=== PATIENT | male | born 1955 | race Caucasian/White ===

== ENCOUNTER 2024-12-13 21:56 | Observation (INO) ==
--- NOTE | 2024-12-13 22:06 | DR.AMS ---
HPI Time Seen Time Seen by Provider: 12/13/24 22:04 HPI Comment HPI Comment: PMH of HLD, COPD and HTN brought in by EMS for failure to thrive. Per EMS family reported he has a history of dementia. He had not been feeding himself and has significant weight loss. Patient was alert and oriented x 2 w ith some confusion and pleasantly demented. Per family's report to EMS this is his baseline mentally. EMS reported that he was clear he was not taking care of himself at home and he was leaving on a trailer that was filthy. Per EMS, patient's family was unable to care for him and requested patient be brought to the hospital and possibly find placement in prison. PMH PMH Past Medical History: CHF, COPD, Dyslipidemia and Hypertension Past Surgical History: No Surgical History: Unknown Family History Family Medical History: Cancer Social History Do you use any recreational Drugs:: No ROS Review of Systems Constitutional: See HPI and Weakness (Generalized); negative Fever Eyes: No Symptoms Reported ENTM: No Symptoms Reported Respiratoy: No Symptoms Reported Cardiovascular: No Symptoms Reported Gastrointestinal/Abdominal: No Symptoms Reported Genitourinary: No Symptoms Reported Neurological: No Symptoms Reported Musculoskeletal: See HPI (Generalized deconditioning. No pain or recent injuries.) Integumentary: No Symptoms Reported Hematologic/Lymphatic: No Symptoms Reported Endocrine: No Symptoms Reported Psychiatric: No Symptoms Reported All Other Systems: Reviewed and Negative PE Vitals Vital Signs: Temp Pulse Pulse Resp BP BP Pulse Ox 12/13/24 23:00 129/95 12/13/24 22:30 83 147/95 96 12/13/24 22:10 98.2 F 87 18 165/103 100 O2 Del Method 12/13/24 23:00 12/13/24 22:30 Nasal Cannula 12/13/24 22:10 General Limitations: Other (Pleasantly demented, alert and oriented x 2. Very debilitated and cachectic.) Head Head Exam: Atraumatic and Normocephalic Eyes Eye exam: Normal Appearance, PERRL and EOMI ENT ENT Exam: Normal Exam Neck Neck Exam: Normal Inspection Chest Chest Inspection: Normal Inspection Respiratory Respiratory Exam: Normal Lung Sounds Bilat Cardiovascular Cardiovascular Exam: Regular Rate and Normal Rhythm Abdominal Exam Abdominal Exam: Normal Inspection, Normal Bowel Sounds and Soft; negative Distention, Tenderness, Guarding, Rebound or Rigidity Extremities Extremities Exam: Normal Inspection Back Back Exam: Normal Inspection Psychological Psychiatric Exam: Normal Affect and Normal Mood Other Exam Other Exam: Patient had grown appropriately with very poor hygiene. Patient is very cachectic and deconditioned. COURSE Consultation Called: 00:37 Consultation Comments: Discussed case with Dr. Andre and he is agreeable to admission. ROR Labs Reviewed 12/13/24 22:14 12/13/24 22:14 Laboratory: WBC 9.6 X10^3/uL (3.6-10.0) 12/13/24 22:14 RBC 4.67 X10^6/uL (4.7-6.0) L 12/13/24 22:14 Hgb 14.4 g/dL (13.5-18.0) 12/13/24 22:14 Hct 43.1 % (42.0-54.0) 12/13/24 22:14 MCV 92.2 fL (80.0-100.0) 12/13/24 22:14 MCH 30.8 pg (27.0-34.0) 12/13/24 22:14 MCHC 33.4 g/dL (33.0-35.0) 12/13/24 22:14 RDW 14.9 % (11.6-16.5) 12/13/24 22:14 Plt Count 280 X10^3/uL (150.0-450.0) 12/13/24 22:14 MPV 7.5 fL (7.4-11.0) 12/13/24 22:14 Neut % (Auto) 73.0 % (42.0-75.0) 12/13/24 22:14 Lymph % (Auto) 16.6 % (21.0-51.0) L 12/13/24 22:14 [place] % (Auto) 5.5 % (0.0-13.0) 12/13/24 22:14 Eos % (Auto) 3.9 % (0.9-2.9) H 12/13/24 22:14 Baso % (Auto) 1.0 % (0.2-1.0) 12/13/24 22:14 Neut # (Auto) 7.0 x10^3/uL (2.2-4.8) H 12/13/24 22:14 Lymph # (Auto) 1.6 X10^3/uL (1.3-2.9) 12/13/24 22:14 [place] # (Auto) 0.5 x10^3/uL (0.3-0.8) 12/13/24 22:14 Eos # (Auto) 0.4 x10^3/uL (0.0-0.2) H 12/13/24 22:14 Baso # (Auto) 0.1 X10^3/uL (0.0-0.1) 12/13/24 22:14 Absolute Nucleated RBC 0.1 /100WBC 12/13/24 22:14 Sodium 144 mmol/L (136-145) 12/13/24 22:14 Corrected Sodium 145 mmol/L (136-145) 12/13/24 22:14 Potassium 3.6 mmol/L (3.5-5.1) 12/13/24 22:14 Chloride 102 mmol/L (98-107) 12/13/24 22:14 Carbon Dioxide 33.1 mmol/L (21-32) H 12/13/24 22:14 BUN 23 mg/dL (7-18) H 12/13/24 22:14 Creatinine 1.41 mg/dL (0.70-1.30) H 12/13/24 22:14 Est GFR (MDRD) Af Amer > 60 (>60) 12/13/24 22:14 Est GFR (MDRD) Non-Af 53 (>60) L 12/13/24 22:14 Glucose 134 mg/dL (65-99) H 12/13/24 22:14 Calcium 9.0 mg/dL (8.5-10.1) 12/13/24 22:14 Corrected Calcium 9.8 mg/dL (8.5-10.1) 12/13/24 22:14 Total Bilirubin 1.00 mg/dL (0.2-1.0) 12/13/24 22:14 AST 24 Units/L (15-37) 12/13/24 22:14 ALT 13 Units/L (12-78) 12/13/24 22:14 Alkaline Phosphatase 88 Units/L (46-116) 12/13/24 22:14 Total Protein 6.8 g/dL (6.4-8.2) 12/13/24 22:14 Albumin 3.0 g/dL (3.4-5.0) L 12/13/24 22:14 Globulin 3.8 g/dL (2.5-4.5) 12/13/24 22:14 Albumin/Globulin Ratio 0.8 Ratio (1.1-2.1) L 12/13/24 22:14 Folate > 20.0 ng/mL (>8.6) 12/13/24 22:14 Opioid Opioid Risk Tool Age ([place] box if 16-45): No History of Preadolescent Sexual Abuse: No Total: 0 Total Score Risk Category: Low Risk Copyright: Nino SHETH predicting aberrant behaviors Discharge Plan Diagnosis Discharge Problem: Adult failure to thrive, Dementia, Cachexia Discharge Plan Patient Disposition: ADMITTED INPATIENT Condition: Stable Prescriptions: No Action albuterol sulfate 90 mcg/actuation HFA aerosol inhaler 2 puff inhalation Q4-6H PRNQty: 8.5 0RF losartan-hydrochlorothiazide 50-12.5 mg tablet 1 tab PO QDAY Qty: 15 0RF furosemide 40 mg tablet 40 mg PO BID folic acid 1 mg tablet 1 mg PO QDAY Health Concerns: Post Hospitalization: new medications and changes needed to prevent readmission or further decline. Pt educated and given instructions on all concerns. Plan of Treatment: Continue with present treatment and follow up plan. Pt is to keep follow up appointment as instructed and take medications as ordered. Orders to Discharge Patient Discharge Orders: Transfer (Routine); Ordered 12/14/24 Ordered By: Kavin Wan Instructions Stand Alone Forms: Find Help Web Site, Post Hospital Follow Up Care
--- NOTE | 2024-12-13 22:21 | EKG ---
Test Reason : AMS Blood Pressure : */* mmHG Vent. Rate : 86 BPM Atrial Rate : 86 BPM P-R Int : 142 ms QRS Dur : 86 ms QT Int : 360 ms P-R-T Axes : 79 87 243 degrees QTc Int : 430 ms Normal sinus rhythm Septal infarct (cited on or before 28-MAR-2024) Abnormal ECG When compared with ECG of 28-MAR-2024 17:11, Questionable change in initial forces of Anterior leads ST now depressed in Inferior leads T wave inversion now evident in Inferior leads QT has shortened Confirmed by Michel Thompson MD ([id number]) on 12/14/2024 7:23:14 AM Referred By: Confirmed By: Michel Thompson MD
[2024-12-13 22:33] LABS: BASOPHILS # (AUTO) 0.1 X10^3/uL (0.0-0.1); EOSINOPHILS # (AUTO) 0.4 x10^3/uL (0.0-0.2); EOSINOPHILS % (AUTO) 3.9 % (0.9-2.9); HEMATOCRIT 43.1 % (42.0-54.0); HEMOGLOBIN 14.4 g/dL (13.5-18.0); LYMPHOCYTES # (AUTO) 1.6 X10^3/uL (1.3-2.9); LYMPHOCYTES % (AUTO) 16.6 % (21.0-51.0); MEAN CORPUSCULAR HEMOGLOBIN 30.8 pg (27.0-34.0); MEAN CORPUSCULAR HGB CONC 33.4 g/dL (33.0-35.0); MEAN CORPUSCULAR VOLUME 92.2 fL (80.0-100.0); MEAN PLATELET VOLUME 7.5 fL (7.4-11.0); MONOCYTES # (AUTO) 0.5 x10^3/uL (0.3-0.8); MONOCYTES % (AUTO) 5.5 % (0.0-13.0); PLATELET COUNT 280 X10^3/uL (150.0-450.0); RED BLOOD COUNT 4.67 X10^6/uL (4.7-6.0); RED CELL DISTRIBUTION WIDTH 14.9 % (11.6-16.5); WHITE BLOOD COUNT 9.6 X10^3/uL (3.6-10.0)
[2024-12-13 22:45] LABS: ALANINE AMINOTRANSFERASE 13 Units/L (12-78); ALKALINE PHOSPHATASE 88 Units/L (46-116); ASPARTATE AMINO TRANSFERASE 24 Units/L (15-37); BLOOD UREA NITROGEN 23 mg/dL (7-18); CARBON DIOXIDE 33.1 mmol/L (21-32); CHLORIDE 102 mmol/L (98-107); COR CA(FOR HYPOALB) 9.8 mg/dL (8.5-10.1); COR NA(FOR HYPERGLY) 145 mmol/L (136-145); CREATININE 1.41 mg/dL (0.70-1.30); GLUCOSE 134 mg/dL (65-99); POTASSIUM 3.6 mmol/L (3.5-5.1); SODIUM 144 mmol/L (136-145); TOTAL PROTEIN 6.8 g/dL (6.4-8.2); eGFR NON BLACK RACES 53 (>60)
[2024-12-14] MEDS ORDERED: CONSULT PHARMACY - POTASSIUM & MAGNESIUM XX SCH (01:01)
[2024-12-14] MEDS: NS 1,000 ML IV 1,000 ML IV SCH (01:48)
[2024-12-14] MEDS: K-DUR TAB 20 MEQ PO SCH ×2 (01:49→08:05)
[2024-12-14 04:50] LABS: BASOPHILS # (AUTO) 0.1 X10^3/uL (0.0-0.1); BASOPHILS % (AUTO) 1.4 % (0.2-1.0); EOSINOPHILS # (AUTO) 0.3 x10^3/uL (0.0-0.2); EOSINOPHILS % (AUTO) 4.3 % (0.9-2.9); HEMATOCRIT 43.8 % (42.0-54.0); HEMOGLOBIN 14.5 g/dL (13.5-18.0); LYMPHOCYTES # (AUTO) 1.4 X10^3/uL (1.3-2.9); LYMPHOCYTES % (AUTO) 18.3 % (21.0-51.0); MEAN CORPUSCULAR HEMOGLOBIN 30.7 pg (27.0-34.0); MEAN CORPUSCULAR HGB CONC 33.2 g/dL (33.0-35.0); MEAN CORPUSCULAR VOLUME 92.4 fL (80.0-100.0); MEAN PLATELET VOLUME 7.7 fL (7.4-11.0); MONOCYTES # (AUTO) 0.5 x10^3/uL (0.3-0.8); MONOCYTES % (AUTO) 6.4 % (0.0-13.0); NEUTROPHILS # (AUTO) 5.3 x10^3/uL (2.2-4.8); NEUTROPHILS % (AUTO) 69.6 % (42.0-75.0); PLATELET COUNT 272 X10^3/uL (150.0-450.0); RED BLOOD COUNT 4.74 X10^6/uL (4.7-6.0); RED CELL DISTRIBUTION WIDTH 14.9 % (11.6-16.5); WHITE BLOOD COUNT 7.7 X10^3/uL (3.6-10.0)
[2024-12-14 05:10] LABS: ALANINE AMINOTRANSFERASE 11 Units/L (12-78); ALKALINE PHOSPHATASE 89 Units/L (46-116); ASPARTATE AMINO TRANSFERASE 21 Units/L (15-37); BLOOD UREA NITROGEN 22 mg/dL (7-18); CALCIUM 9.1 mg/dL (8.5-10.1); CARBON DIOXIDE 36.8 mmol/L (21-32); CHLORIDE 104 mmol/L (98-107); COR CA(FOR HYPOALB) 9.9 mg/dL (8.5-10.1); COR NA(FOR HYPERGLY) 147 mmol/L (136-145); CREATININE 1.21 mg/dL (0.70-1.30); GLUCOSE 160 mg/dL (65-99); MAGNESIUM 2.3 mg/dL (2.0-2.9); POTASSIUM 3.7 mmol/L (3.5-5.1); SODIUM 146 mmol/L (136-145); eGFR NON BLACK RACES > 60 (>60)
[2024-12-14] MEDS: CONSULT PHARMACY - POTASSIUM & MAGNESIUM XX SCH (06:53)
[2024-12-14] MEDS ORDERED: TESSALON PERLES PO PRN (09:11)
--- NOTE | 2024-12-14 09:48 | DR.H&P ---
H&P History & Physical for Day of: H&P Date: 12/14/24 Chief Complaint Chief Complaint: generalized weakness, FTT History of Present Illness History of Present Illness: Mr Larson is a 69y/o male with a PMH of COPD, HTN, Dementia presented with failure To thrive and generalized weakness. Patient was found in very bad living condition and unable to take care of himself. ER workup showed slight dehydration. He was started on IV fluids and admitted for further evaluation. Patient states he has not followed up with PCP in a while. He reports taking his medications. He does report normal appetite and does not think he is lost a lot of weight. He states he is able to ambulate on his own. He has been coughing recently. Labs/imaging reviewed: - WBC 7.7 hemoglobin 14.5 potassium 3.7 sodium 147 creatinine 1.21 Plan: Will order chest x-ray. Continue nebs, add Pulmicort. Physical therapy evaluation. Continue hydration, switch to D5. Replace electrolytes as per protocol. Hold blood pressure medication at this time. Patient does have a sacral wound, wound care and position change as per protocol. Monitor a.m. labs and imaging. Past Medical History Past Medical History: CHF, COPD, Dyslipidemia and Hypertension Past Surgical History Surgical History: Unknown Family History Family Medical History: Cancer Social History Does patient currently use any type of tobacco product: No Type of Tobacco Use: None Does any household member use tobacco: No Alcohol Use: None Drug Use: None Medications Home Medications: Home Medications Medication Instructions Recorded Confirmed Type folic acid 1 mg tablet 1 mg PO QDAY 12/13/24 12/13/24 History furosemide 40 mg tablet 40 mg PO BID 12/13/24 12/13/24 History Allergies Allergies Allergy/AdvReac Type Severity Reaction Status Date / Time No Known Allergies Allergy Verified 03/28/24 16:40 Labs 12/14/24 04:15 12/14/24 04:15 Labs: Laboratory WBC 7.7 X10^3/uL (3.6-10.0) 12/14/24 04:15 RBC 4.74 X10^6/uL (4.7-6.0) 12/14/24 04:15 Hgb 14.5 g/dL (13.5-18.0) 12/14/24 04:15 Hct 43.8 % (42.0-54.0) 12/14/24 04:15 MCV 92.4 fL (80.0-100.0) 12/14/24 04:15 MCH 30.7 pg (27.0-34.0) 12/14/24 04:15 MCHC 33.2 g/dL (33.0-35.0) 12/14/24 04:15 RDW 14.9 % (11.6-16.5) 12/14/24 04:15 Plt Count 272 X10^3/uL (150.0-450.0) 12/14/24 04:15 MPV 7.7 fL (7.4-11.0) 12/14/24 04:15 Neut % (Auto) 69.6 % (42.0-75.0) 12/14/24 04:15 Lymph % (Auto) 18.3 % (21.0-51.0) L 12/14/24 04:15 [place] % (Auto) 6.4 % (0.0-13.0) 12/14/24 04:15 Eos % (Auto) 4.3 % (0.9-2.9) H 12/14/24 04:15 Baso % (Auto) 1.4 % (0.2-1.0) H 12/14/24 04:15 Neut # (Auto) 5.3 x10^3/uL (2.2-4.8) H 12/14/24 04:15 Lymph # (Auto) 1.4 X10^3/uL (1.3-2.9) 12/14/24 04:15 [place] # (Auto) 0.5 x10^3/uL (0.3-0.8) 12/14/24 04:15 Eos # (Auto) 0.3 x10^3/uL (0.0-0.2) H 12/14/24 04:15 Baso # (Auto) 0.1 X10^3/uL (0.0-0.1) 12/14/24 04:15 Absolute Nucleated RBC 0.1 /100WBC 12/14/24 04:15 Sodium 146 mmol/L (136-145) H 12/14/24 04:15 Corrected Sodium 147 mmol/L (136-145) H 12/14/24 04:15 Potassium 3.7 mmol/L (3.5-5.1) 12/14/24 04:15 Chloride 104 mmol/L (98-107) 12/14/24 04:15 Carbon Dioxide 36.8 mmol/L (21-32) H 12/14/24 04:15 BUN 22 mg/dL (7-18) H 12/14/24 04:15 Creatinine 1.21 mg/dL (0.70-1.30) 12/14/24 04:15 Est GFR (MDRD) Af Amer > 60 (>60) 12/14/24 04:15 Est GFR (MDRD) Non-Af > 60 (>60) 12/14/24 04:15 Glucose 160 mg/dL (65-99) H 12/14/24 04:15 Calcium 9.1 mg/dL (8.5-10.1) 12/14/24 04:15 Corrected Calcium 9.9 mg/dL (8.5-10.1) 12/14/24 04:15 Magnesium 2.3 mg/dL (2.0-2.9) 12/14/24 04:15 Total Bilirubin 0.80 mg/dL (0.2-1.0) 12/14/24 04:15 AST 21 Units/L (15-37) 12/14/24 04:15 ALT 11 Units/L (12-78) L 12/14/24 04:15 Alkaline Phosphatase 89 Units/L (46-116) 12/14/24 04:15 Total Protein 7.0 g/dL (6.4-8.2) 12/14/24 04:15 Albumin 3.0 g/dL (3.4-5.0) L 12/14/24 04:15 Globulin 4.0 g/dL (2.5-4.5) 12/14/24 04:15 Albumin/Globulin Ratio 0.8 Ratio (1.1-2.1) L 12/14/24 04:15 Folate > 20.0 ng/mL (>8.6) 12/13/24 22:14 Review of Systems Constitutional: Weakness Eyes: No Symptoms Reported ENT: No Symptoms Reported Respiratory: Cough and Sputum Cardiovascular: No Symptoms Reported Gastrointestinal: No Symptoms Reported Genitourinary: No Symptoms Reported Musculoskeletal: Other (generalized pain) Skin: Ecchymosis Neurological: No Symptoms Reported Physical Exam Vital Signs: Vital Signs Temperature 97.2 F Temperature 97.8 F Pulse Rate [Left] 80 Pulse Rate [Left] 83 Pulse Rate 87 Respiratory Rate 18 Respiratory Rate 16 Blood Pressure [Right Arm] 142/93 Blood Pressure [Right Arm] 128/78 O2 Sat by Pulse Oximetry 94 O2 Sat by Pulse Oximetry 94 O2 Sat by Pulse Oximetry 95 Oriented: Normal Eyes: Normal Respiratory: Diminished Throughout Cardiovascular: Normal Auscultation: Bowel Sounds: Normal Palpation: Normal Tenderness: Normal Skin: Decreased Turgur and Wound (sacrum ) Musculoskeletal: Motor Deficit Psychiatric: Normal Mood Description: Calm Affect: Normal Speech Pattern: Clear and Appropriate Assessment/Plan (1) Adult failure to thrive: Status: Acute (2) Generalized weakness: Status: Acute (3) Cachexia: Status: Acute (4) Dementia: Qualifiers: Dementia type: unspecified type Dementia severity: unspecified severity Dementia behavioral or psychological symptom: unspecified whether behavioral, psychotic, or mood disturbance or anxiety Qualified Code(s): F03.90 - Unspecified dementia, unspecified severity, without behavioral disturbance, psychotic disturbance, mood disturbance, and anxiety Status: Chronic (5) COPD (chronic obstructive pulmonary disease): Qualifiers: COPD type: COPD with acute exacerbation Qualified Code(s): J44.1 - Chronic obstructive pulmonary disease with (acute) exacerbation Status: Chronic (6) HTN (hypertension): Qualifiers: Hypertension type: primary hypertension Qualified Code(s): I10 - Essential (primary) hypertension Status: Chronic Review H&P Reviewed: Yes Patient was examined?: Yes
[2024-12-14] MEDS: D5W 1,000 ML IV 1,000 ML IV SCH (10:08)
[2024-12-14] MEDS: PULMICORT NEB TX 0.5 MG NEB SCH (10:33)
[2024-12-14] MEDS: PROVENTIL NEB TX 0.083% 2.5MG/ 3ML NEB PRN (10:33)
--- NOTE | 2024-12-14 12:04 | RAD ---
EXAM: CHEST, 1 VIEW HISTORY: COUGH; HX- COPD, HTN COMPARISON: No relevant prior studies were available for comparison at the time of interpretation. TECHNIQUE: CHEST, 1 VIEW FINDINGS: Chest: Lines and tubes: None Mediastinum: Cardiac and mediastinal shadow is within normal limits for size and contour. Pulmonary vessels: No pulmonary vascular congestion. Lung buckley: Interstitial markings and hyperinflation of the lungs with diaphragmatic flattening. Pleura: No effusion. No pneumothorax. Bones and soft tissues: No acute osseous or soft tissue abnormality. IMPRESSION: 1. No acute cardiopulmonary abnormality 2. Stigmata of COPD THIS IS AN ELECTRONICALLY VERIFIED FINAL REPORT 12/14/2024 12:00 PM - Electronically signed by Abdulaziz Khan MD
[2024-12-14 16:10] LABS: BILIRUBIN,URINE NEGATIVE (NEGATIVE); BLOOD/HEMOGLOBIN,URINE NEGATIVE (NEGATIVE); GLUCOSE, URINE NEGATIVE (NEGATIVE); KETONES,URINE NEGATIVE (NEGATIVE); LEUKOCYTE ESTERASE ,URINE NEGATIVE (NEGATIVE); NITRITES,URINE NEGATIVE (NEGATIVE); PROTEIN,URINE 2+ (NEGATIVE); UROBILINOGEN,URINE NORMAL (NORMAL)
[2024-12-14 16:11] LABS: APPEARANCE,URINE CLEAR (CLEAR); COLOR,URINE YELLOW (YELLOW)
[2024-12-14 16:16] LABS: BACTERIA,URINE NEGATIVE /HPF (NEGATIVE); SQUAMOUS EPITHELIAL CELL,UR NEGATIVE /HPF (NEGATIVE)
[2024-12-14 16:17] LABS: CALCIUM OXALATE CRYSTALS,UR FEW /HPF (NEGATIVE); HYALINE CASTS, URINE FEW /LPF (NEGATIVE)
[2024-12-14] MEDS: ZITHROMAX INJ 500 MG VIAL 500 MG in NS 250 ML IV 250 ML IV SCH (17:33)
[2024-12-15 05:48] LABS: BASOPHILS % (AUTO) 0.5 % (0.2-1.0); EOSINOPHILS # (AUTO) 0.4 x10^3/uL (0.0-0.2); EOSINOPHILS % (AUTO) 8.6 % (0.9-2.9); HEMOGLOBIN 13.5 g/dL (13.5-18.0); LYMPHOCYTES # (AUTO) 1.4 X10^3/uL (1.3-2.9); MEAN CORPUSCULAR HEMOGLOBIN 31.3 pg (27.0-34.0); MEAN CORPUSCULAR HGB CONC 33.8 g/dL (33.0-35.0); MEAN CORPUSCULAR VOLUME 92.6 fL (80.0-100.0); MEAN PLATELET VOLUME 7.7 fL (7.4-11.0); MONOCYTES # (AUTO) 0.4 x10^3/uL (0.3-0.8); MONOCYTES % (AUTO) 6.9 % (0.0-13.0); NEUTROPHILS # (AUTO) 2.9 x10^3/uL (2.2-4.8); PLATELET COUNT 236 X10^3/uL (150.0-450.0); RED BLOOD COUNT 4.32 X10^6/uL (4.7-6.0); WHITE BLOOD COUNT 5.1 X10^3/uL (3.6-10.0)
[2024-12-15 06:02] LABS: ALANINE AMINOTRANSFERASE 11 Units/L (12-78); ALBUMIN 2.6 g/dL (3.4-5.0); ALKALINE PHOSPHATASE 72 Units/L (46-116); ASPARTATE AMINO TRANSFERASE 22 Units/L (15-37); BLOOD UREA NITROGEN 18 mg/dL (7-18); CALCIUM 8.6 mg/dL (8.5-10.1); CARBON DIOXIDE 37.2 mmol/L (21-32); CHLORIDE 104 mmol/L (98-107); COR CA(FOR HYPOALB) 9.7 mg/dL (8.5-10.1); CREATININE 0.83 mg/dL (0.70-1.30); GLUCOSE 84 mg/dL (65-99); MAGNESIUM 2.1 mg/dL (2.0-2.9); POTASSIUM 4.5 mmol/L (3.5-5.1); SODIUM 142 mmol/L (136-145); TOTAL PROTEIN 6.2 g/dL (6.4-8.2); eGFR NON BLACK RACES > 60 (>60)
[2024-12-15 06:42] VITALS: BMI 12.9
--- NOTE | 2024-12-15 15:45 | PCM.PROG ---
Progress Note Progress Note for Day of Date of Exam: 12/15/24 Subjective Subjective: Patient seen at bedside, no acute events overnight. He states he is feeling better. His cough is improved. Chest x-ray did not show any acute changes except chronic COPD. His blood pressure has been good. His BP medications have been held. Discussed living condition at home. Patient states he would prefer to go home. He states he worked with physical therapy yesterday. He reports that he is able to ambulate and go to the bathroom. Labs/imaging reviewed: - WBC 5.1 hemoglobin 13.5 potassium 4.5 sodium 142 creatinine 0.83 - Chest x-ray reviewed Plan: Continue gentle hydration. Continue nebs and azithromycin. CM to work on discharge planning. Continue physical therapy as tolerated. Replace electrolytes as needed. Monitor a.m. labs and imaging. Past Medical Family Social History Allergies: Allergies No Known Allergies Allergy (Verified 03/28/24 16:40) Vital Signs and I&O's Vital Signs: Vital Signs Temperature 97.3 F Temperature 97.2 F Pulse Rate [Left] 73 Pulse Rate [Left] 65 Pulse Rate 83 Respiratory Rate 19 Respiratory Rate 18 Blood Pressure [Right Arm] 103/73 Blood Pressure [Right Arm] 106/64 O2 Sat by Pulse Oximetry 97 O2 Sat by Pulse Oximetry 95 O2 Sat by Pulse Oximetry 98 Intake and Output: Intake & Output 12/12/24 12/13/24 12/14/24 12/15/24 23:59 23:59 23:59 23:59 Intake Total 1504 / 1504 1288 / 1288 Output Total 250 / 250 Balance 1254 / 1254 1288 / 1288 Physical Exam Oriented: Normal Eyes: Normal Throat: Dry Respiratory: Generalized and Diminished Cardiovascular: Normal Auscultation: Bowel Sounds: Normal Palpation: Normal Tenderness: Normal Skin: Decreased Turgur and Wound (sacrum ) Musculoskeletal: Motor Deficit Psychiatric: Normal Mood Description: Calm Affect: Normal Speech Pattern: Clear and Appropriate Laboratory and Diagnostics 12/15/24 05:13 12/15/24 05:13 Labs: Laboratory WBC 5.1 X10^3/uL (3.6-10.0) 12/15/24 05:13 RBC 4.32 X10^6/uL (4.7-6.0) L 12/15/24 05:13 Hgb 13.5 g/dL (13.5-18.0) 12/15/24 05:13 Hct 40.0 % (42.0-54.0) L 12/15/24 05:13 MCV 92.6 fL (80.0-100.0) 12/15/24 05:13 MCH 31.3 pg (27.0-34.0) 12/15/24 05:13 MCHC 33.8 g/dL (33.0-35.0) 12/15/24 05:13 RDW 15.0 % (11.6-16.5) 12/15/24 05:13 Plt Count 236 X10^3/uL (150.0-450.0) 12/15/24 05:13 MPV 7.7 fL (7.4-11.0) 12/15/24 05:13 Neut % (Auto) 57.0 % (42.0-75.0) 12/15/24 05:13 Lymph % (Auto) 27.0 % (21.0-51.0) 12/15/24 05:13 [place] % (Auto) 6.9 % (0.0-13.0) 12/15/24 05:13 Eos % (Auto) 8.6 % (0.9-2.9) H 12/15/24 05:13 Baso % (Auto) 0.5 % (0.2-1.0) 12/15/24 05:13 Neut # (Auto) 2.9 x10^3/uL (2.2-4.8) 12/15/24 05:13 Lymph # (Auto) 1.4 X10^3/uL (1.3-2.9) 12/15/24 05:13 [place] # (Auto) 0.4 x10^3/uL (0.3-0.8) 12/15/24 05:13 Eos # (Auto) 0.4 x10^3/uL (0.0-0.2) H 12/15/24 05:13 Baso # (Auto) 0.0 X10^3/uL (0.0-0.1) 12/15/24 05:13 Absolute Nucleated RBC 0.2 /100WBC 12/15/24 05:13 Sodium 142 mmol/L (136-145) 12/15/24 05:13 Corrected Sodium TNP 12/15/24 05:13 Potassium 4.5 mmol/L (3.5-5.1) 12/15/24 05:13 Chloride 104 mmol/L (98-107) 12/15/24 05:13 Carbon Dioxide 37.2 mmol/L (21-32) H 12/15/24 05:13 BUN 18 mg/dL (7-18) 12/15/24 05:13 Creatinine 0.83 mg/dL (0.70-1.30) 12/15/24 05:13 Est GFR (MDRD) Af Amer > 60 (>60) 12/15/24 05:13 Est GFR (MDRD) Non-Af > 60 (>60) 12/15/24 05:13 Glucose 84 mg/dL (65-99) 12/15/24 05:13 Calcium 8.6 mg/dL (8.5-10.1) 12/15/24 05:13 Corrected Calcium 9.7 mg/dL (8.5-10.1) 12/15/24 05:13 Magnesium 2.1 mg/dL (2.0-2.9) 12/15/24 05:13 Total Bilirubin 0.90 mg/dL (0.2-1.0) 12/15/24 05:13 AST 22 Units/L (15-37) 12/15/24 05:13 ALT 11 Units/L (12-78) L 12/15/24 05:13 Alkaline Phosphatase 72 Units/L (46-116) 12/15/24 05:13 Total Protein 6.2 g/dL (6.4-8.2) L 12/15/24 05:13 Albumin 2.6 g/dL (3.4-5.0) L 12/15/24 05:13 Globulin 3.6 g/dL (2.5-4.5) 12/15/24 05:13 Albumin/Globulin Ratio 0.7 Ratio (1.1-2.1) L 12/15/24 05:13 Folate > 20.0 ng/mL (>8.6) 12/13/24 22:14 Specimen Type Clean catch urine 12/14/24 16:03 Urine Color Yellow (YELLOW) 12/14/24 16:03 Urine Appearance Clear (CLEAR) 12/14/24 16:03 Urine pH 6.0 (5.0 - 8.0) 12/14/24 16:03 Ur Specific [place] 1.030 (1.000-1.030) 12/14/24 16:03 Urine Protein 2+ (NEGATIVE) 12/14/24 16:03 Urine Glucose (UA) Negative (NEGATIVE) 12/14/24 16:03 Urine Ketones Negative (NEGATIVE) 12/14/24 16:03 Urine Blood Negative (NEGATIVE) 12/14/24 16:03 Urine Nitrite Negative (NEGATIVE) 12/14/24 16:03 Urine Bilirubin Negative (NEGATIVE) 12/14/24 16:03 Urine Urobilinogen Normal (NORMAL) 12/14/24 16:03 Ur Leukocyte Esterase Negative (NEGATIVE) 12/14/24 16:03 Urine RBC 5-10 /HPF (0-3) A 12/14/24 16:03 Urine WBC 0-2 /HPF (0-5) 12/14/24 16:03 Ur Squamous Epith Cells Negative /HPF (NEGATIVE) 12/14/24 16:03 Calcium Oxalate Crystal Few /HPF (NEGATIVE) 12/14/24 16:03 Urine Bacteria Negative /HPF (NEGATIVE) 12/14/24 16:03 Hyaline Casts Few /LPF (NEGATIVE) 12/14/24 16:03 Urine Mucus Few /HPF (NEGATIVE) 12/14/24 16:03 Ur Culture Indicated? No/not indicated 12/14/24 16:03 Urine Opiates Screen Negative (NEG=<300) 12/14/24 16:03 Urine Methadone Screen Negative (NEG=<300) 12/14/24 16:03 Ur Barbiturates Screen Negative (NEG=<200) 12/14/24 16:03 Ur Phencyclidine Scrn Negative (NEG=<25) 12/14/24 16:03 Ur Amphetamines Screen Negative (NEG=<1000) 12/14/24 16:03 U Benzodiazepines Scrn Negative (NEG=<200) 12/14/24 16:03 Urine Cocaine Screen Negative (NEG=<300) 12/14/24 16:03 U Marijuana (THC) Screen Negative (NEG=<50) 12/14/24 16:03 Plan (1) Adult failure to thrive: Status: Acute (2) Generalized weakness: Status: Acute (3) Cachexia: Status: Acute (4) Dementia: Status: Chronic Qualifiers: Dementia behavioral or psychological symptom: unspecified whether behavioral, psychotic, or mood disturbance or anxiety Dementia severity: unspecified severity Dementia type: unspecified type Qualified Code(s): F03.90 - Unspecified dementia, unspecified severity, without behavioral disturbance, psychotic disturbance, mood disturbance, and anxiety (5) COPD (chronic obstructive pulmonary disease): Status: Chronic Qualifiers: COPD type: COPD with acute exacerbation Qualified Code(s): J44.1 - Chronic obstructive pulmonary disease with (acute) exacerbation (6) HTN (hypertension): Status: Chronic Qualifiers: Hypertension type: primary hypertension Qualified Code(s): I10 - Essential (primary) hypertension (7) Bronchitis: Status: Acute
[2024-12-16 05:53] LABS: HEMOGLOBIN 13.4 g/dL (13.5-18.0); WHITE BLOOD COUNT 4.9 X10^3/uL (3.6-10.0)
[2024-12-16 06:00] LABS: BASOPHILS % (AUTO) 0.8 % (0.2-1.0); EOSINOPHILS # (AUTO) 0.4 x10^3/uL (0.0-0.2); EOSINOPHILS % (AUTO) 9.2 % (0.9-2.9); HEMATOCRIT 39.1 % (42.0-54.0); LYMPHOCYTES # (AUTO) 1.3 X10^3/uL (1.3-2.9); LYMPHOCYTES % (AUTO) 26.4 % (21.0-51.0); MEAN CORPUSCULAR HEMOGLOBIN 31.4 pg (27.0-34.0); MEAN CORPUSCULAR HGB CONC 34.4 g/dL (33.0-35.0); MEAN CORPUSCULAR VOLUME 91.5 fL (80.0-100.0); MEAN PLATELET VOLUME 7.9 fL (7.4-11.0); MONOCYTES # (AUTO) 0.3 x10^3/uL (0.3-0.8); MONOCYTES % (AUTO) 5.9 % (0.0-13.0); NEUTROPHILS # (AUTO) 2.8 x10^3/uL (2.2-4.8); NEUTROPHILS % (AUTO) 57.7 % (42.0-75.0); PLATELET COUNT 237 X10^3/uL (150.0-450.0); RED BLOOD COUNT 4.28 X10^6/uL (4.7-6.0); RED CELL DISTRIBUTION WIDTH 14.9 % (11.6-16.5)
[2024-12-16 06:22] LABS: ALANINE AMINOTRANSFERASE 14 Units/L (12-78); ALBUMIN 2.6 g/dL (3.4-5.0); ALKALINE PHOSPHATASE 74 Units/L (46-116); ASPARTATE AMINO TRANSFERASE 25 Units/L (15-37); BLOOD UREA NITROGEN 14 mg/dL (7-18); CALCIUM 8.5 mg/dL (8.5-10.1); CARBON DIOXIDE 35.2 mmol/L (21-32); CHLORIDE 103 mmol/L (98-107); COR CA(FOR HYPOALB) 9.6 mg/dL (8.5-10.1); CREATININE 0.75 mg/dL (0.70-1.30); GLUCOSE 78 mg/dL (65-99); POTASSIUM 4.2 mmol/L (3.5-5.1); SODIUM 143 mmol/L (136-145); TOTAL PROTEIN 6.2 g/dL (6.4-8.2); eGFR NON BLACK RACES > 60 (>60)
[2024-12-16 17:04] LABS: APPEARANCE,URINE CLEAR (CLEAR); BILIRUBIN,URINE NEGATIVE (NEGATIVE); BLOOD/HEMOGLOBIN,URINE 2+ (NEGATIVE); COLOR,URINE YELLOW (YELLOW); GLUCOSE, URINE NEGATIVE (NEGATIVE); KETONES,URINE NEGATIVE (NEGATIVE); LEUKOCYTE ESTERASE ,URINE 1+ (NEGATIVE); NITRITES,URINE NEGATIVE (NEGATIVE); PROTEIN,URINE 2+ (NEGATIVE); UROBILINOGEN,URINE NORMAL (NORMAL)
[2024-12-16 17:13] LABS: BACTERIA,URINE 1+ /HPF (NEGATIVE); SQUAMOUS EPITHELIAL CELL,UR FEW /HPF (NEGATIVE)
[2024-12-16 17:14] LABS: CALCIUM OXALATE CRYSTALS,UR FEW /HPF (NEGATIVE); HYALINE CASTS, URINE FEW /LPF (NEGATIVE)
[2024-12-17 06:38] LABS: BASOPHILS # (AUTO) 0.1 X10^3/uL (0.0-0.1); BASOPHILS % (AUTO) 0.9 % (0.2-1.0); EOSINOPHILS # (AUTO) 0.3 x10^3/uL (0.0-0.2); EOSINOPHILS % (AUTO) 5.2 % (0.9-2.9); HEMATOCRIT 36.4 % (42.0-54.0); HEMOGLOBIN 12.4 g/dL (13.5-18.0); LYMPHOCYTES # (AUTO) 1.3 X10^3/uL (1.3-2.9); LYMPHOCYTES % (AUTO) 21.1 % (21.0-51.0); MEAN CORPUSCULAR HEMOGLOBIN 31.4 pg (27.0-34.0); MEAN CORPUSCULAR HGB CONC 34.1 g/dL (33.0-35.0); MEAN PLATELET VOLUME 7.7 fL (7.4-11.0); MONOCYTES # (AUTO) 0.4 x10^3/uL (0.3-0.8); MONOCYTES % (AUTO) 5.7 % (0.0-13.0); NEUTROPHILS # (AUTO) 4.1 x10^3/uL (2.2-4.8); NEUTROPHILS % (AUTO) 67.1 % (42.0-75.0); PLATELET COUNT 244 X10^3/uL (150.0-450.0); RED BLOOD COUNT 3.96 X10^6/uL (4.7-6.0); RED CELL DISTRIBUTION WIDTH 14.5 % (11.6-16.5); WHITE BLOOD COUNT 6.2 X10^3/uL (3.6-10.0)
[2024-12-17 06:48] LABS: ALANINE AMINOTRANSFERASE 20 Units/L (12-78); ALBUMIN 2.5 g/dL (3.4-5.0); ALKALINE PHOSPHATASE 73 Units/L (46-116); ASPARTATE AMINO TRANSFERASE 25 Units/L (15-37); BLOOD UREA NITROGEN 12 mg/dL (7-18); CALCIUM 8.5 mg/dL (8.5-10.1); CARBON DIOXIDE 33.5 mmol/L (21-32); CHLORIDE 101 mmol/L (98-107); COR CA(FOR HYPOALB) 9.7 mg/dL (8.5-10.1); GLUCOSE 78 mg/dL (65-99); POTASSIUM 4.2 mmol/L (3.5-5.1); SODIUM 138 mmol/L (136-145); eGFR NON BLACK RACES > 60 (>60)
--- NOTE | 2024-12-17 10:37 | PCM.PROG ---
Progress Note Progress Note for Day of Date of Exam: 12/16/24 Subjective Subjective: Patient seen at bedside, no acute events overnight. He states he is feeling better. His respiratory symptoms have improved. He was supposed to be discharged home yesterday but then decided to consider rehab placement. CM working on discharge planning. Patient prefers to go to [place]. Labs/imaging reviewed: - WBC 4.9 hemoglobin 13.4 potassium 4.2 sodium 143 creatinine 0.75 - Chest x-ray reviewed Plan: Continue gentle hydration. Continue nebs and azithromycin. CM to work on discharge planning. Continue physical therapy as tolerated. Replace electrolytes as needed. Monitor a.m. labs and imaging. Past Medical Family Social History Allergies: Allergies No Known Allergies Allergy (Verified 03/28/24 16:40) Vital Signs and I&O's Vital Signs: Vital Signs Temperature 97.3 F Temperature 98.4 F Pulse Rate [Left] 70 Pulse Rate [Left] 67 Respiratory Rate 18 Respiratory Rate 18 Blood Pressure [Left Arm] 138/85 Blood Pressure [Left Arm] 125/60 O2 Sat by Pulse Oximetry 96 O2 Sat by Pulse Oximetry 98 Intake and Output: Intake & Output 12/14/24 12/15/24 12/16/24 12/17/24 23:59 23:59 23:59 23:59 Intake Total 1504 / 1504 1338 / 1338 1085 / 1085 Output Total 250 / 250 300 / 300 150 / 150 Balance 1254 / 1254 1038 / 1038 935 / 935 Physical Exam Oriented: Normal Eyes: Normal Throat: Normal Respiratory: Generalized and Diminished Cardiovascular: Normal Auscultation: Bowel Sounds: Normal Palpation: Normal Tenderness: Normal Skin: Decreased Turgur and Wound (sacrum ) Musculoskeletal: Motor Deficit Psychiatric: Normal Mood Description: Calm Affect: Normal Speech Pattern: Clear and Appropriate Laboratory and Diagnostics 12/17/24 05:25 12/17/24 05:25 Labs: 12/16/24 16:34 Urine,Catheterized Urine Culture - Preliminary Laboratory WBC 6.2 X10^3/uL (3.6-10.0) 12/17/24 05:25 RBC 3.96 X10^6/uL (4.7-6.0) L 12/17/24 05:25 Hgb 12.4 g/dL (13.5-18.0) L 12/17/24 05:25 Hct 36.4 % (42.0-54.0) L 12/17/24 05:25 MCV 92.0 fL (80.0-100.0) 12/17/24 05:25 MCH 31.4 pg (27.0-34.0) 12/17/24 05:25 MCHC 34.1 g/dL (33.0-35.0) 12/17/24 05:25 RDW 14.5 % (11.6-16.5) 12/17/24 05:25 Plt Count 244 X10^3/uL (150.0-450.0) 12/17/24 05:25 MPV 7.7 fL (7.4-11.0) 12/17/24 05:25 Neut % (Auto) 67.1 % (42.0-75.0) 12/17/24 05:25 Lymph % (Auto) 21.1 % (21.0-51.0) 12/17/24 05:25 [place] % (Auto) 5.7 % (0.0-13.0) 12/17/24 05:25 Eos % (Auto) 5.2 % (0.9-2.9) H 12/17/24 05:25 Baso % (Auto) 0.9 % (0.2-1.0) 12/17/24 05:25 Neut # (Auto) 4.1 x10^3/uL (2.2-4.8) 12/17/24 05:25 Lymph # (Auto) 1.3 X10^3/uL (1.3-2.9) 12/17/24 05:25 [place] # (Auto) 0.4 x10^3/uL (0.3-0.8) 12/17/24 05:25 Eos # (Auto) 0.3 x10^3/uL (0.0-0.2) H 12/17/24 05:25 Baso # (Auto) 0.1 X10^3/uL (0.0-0.1) 12/17/24 05:25 Absolute Nucleated RBC 0.2 /100WBC 12/17/24 05:25 Sodium 138 mmol/L (136-145) 12/17/24 05:25 Corrected Sodium TNP 12/17/24 05:25 Potassium 4.2 mmol/L (3.5-5.1) 12/17/24 05:25 Chloride 101 mmol/L (98-107) 12/17/24 05:25 Carbon Dioxide 33.5 mmol/L (21-32) H 12/17/24 05:25 BUN 12 mg/dL (7-18) 12/17/24 05:25 Creatinine 0.70 mg/dL (0.70-1.30) 12/17/24 05:25 Est GFR (MDRD) Af Amer > 60 (>60) 12/17/24 05:25 Est GFR (MDRD) Non-Af > 60 (>60) 12/17/24 05:25 Glucose 78 mg/dL (65-99) 12/17/24 05:25 Calcium 8.5 mg/dL (8.5-10.1) 12/17/24 05:25 Corrected Calcium 9.7 mg/dL (8.5-10.1) 12/17/24 05:25 Magnesium 2.0 mg/dL (2.0-2.9) 12/16/24 05:14 Total Bilirubin 0.70 mg/dL (0.2-1.0) 12/17/24 05:25 AST 25 Units/L (15-37) 12/17/24 05:25 ALT 20 Units/L (12-78) 12/17/24 05:25 Alkaline Phosphatase 73 Units/L (46-116) 12/17/24 05:25 Total Protein 6.0 g/dL (6.4-8.2) L 12/17/24 05:25 Albumin 2.5 g/dL (3.4-5.0) L 12/17/24 05:25 Globulin 3.5 g/dL (2.5-4.5) 12/17/24 05:25 Albumin/Globulin Ratio 0.7 Ratio (1.1-2.1) L 12/17/24 05:25 Folate > 20.0 ng/mL (>8.6) 12/13/24 22:14 Specimen Type Catherized urine 12/16/24 16:34 Urine Color Yellow (YELLOW) 12/16/24 16:34 Urine Appearance Clear (CLEAR) 12/16/24 16:34 Urine pH 6.0 (5.0 - 8.0) 12/16/24 16:34 Ur Specific [place] 1.025 (1.000-1.030) 12/16/24 16:34 Urine Protein 2+ (NEGATIVE) 12/16/24 16:34 Urine Glucose (UA) Negative (NEGATIVE) 12/16/24 16:34 Urine Ketones Negative (NEGATIVE) 12/16/24 16:34 Urine Blood 2+ (NEGATIVE) 12/16/24 16:34 Urine Nitrite Negative (NEGATIVE) 12/16/24 16:34 Urine Bilirubin Negative (NEGATIVE) 12/16/24 16:34 Urine Urobilinogen Normal (NORMAL) 12/16/24 16:34 Ur Leukocyte Esterase 1+ (NEGATIVE) 12/16/24 16:34 Urine RBC 5-10 /HPF (0-3) A 12/16/24 16:34 Urine WBC 5-10 /HPF (0-5) A 12/16/24 16:34 Ur Squamous Epith Cells Few /HPF (NEGATIVE) 12/16/24 16:34 Calcium Oxalate Crystal Few /HPF (NEGATIVE) 12/16/24 16:34 Urine Bacteria 1+ /HPF (NEGATIVE) 12/16/24 16:34 Hyaline Casts Few /LPF (NEGATIVE) 12/16/24 16:34 Urine Mucus Moderate /HPF (NEGATIVE) 12/16/24 16:34 Ur Culture Indicated? Yes/culture set up 12/16/24 16:34 Urine Opiates Screen Negative (NEG=<300) 12/14/24 16:03 Urine Methadone Screen Negative (NEG=<300) 12/14/24 16:03 Ur Barbiturates Screen Negative (NEG=<200) 12/14/24 16:03 Ur Phencyclidine Scrn Negative (NEG=<25) 12/14/24 16:03 Ur Amphetamines Screen Negative (NEG=<1000) 12/14/24 16:03 U Benzodiazepines Scrn Negative (NEG=<200) 12/14/24 16:03 Urine Cocaine Screen Negative (NEG=<300) 12/14/24 16:03 U Marijuana (THC) Screen Negative (NEG=<50) 12/14/24 16:03 Plan (1) Adult failure to thrive: Status: Acute (2) Generalized weakness: Status: Acute (3) Cachexia: Status: Acute (4) Dementia: Status: Chronic Qualifiers: Dementia behavioral or psychological symptom: unspecified whether behavioral, psychotic, or mood disturbance or anxiety Dementia severity: unspecified severity Dementia type: unspecified type Qualified Code(s): F03.90 - Unspecified dementia, unspecified severity, without behavioral disturbance, psychotic disturbance, mood disturbance, and anxiety (5) COPD (chronic obstructive pulmonary disease): Status: Chronic Qualifiers: COPD type: COPD with acute exacerbation Qualified Code(s): J44.1 - Chronic obstructive pulmonary disease with (acute) exacerbation (6) HTN (hypertension): Status: Chronic Qualifiers: Hypertension type: primary hypertension Qualified Code(s): I10 - Essential (primary) hypertension (7) Bronchitis: Status: Acute
--- NOTE | 2024-12-17 11:26 | PCM.PROG ---
Progress Note Progress Note for Day of Date of Exam: 12/17/24 Subjective Subjective: Patient reports feeling better this morning. He is resting in bed. No acute events overnight. His respiratory symptoms have improved. Rehab placement. CM working on discharge planning. Patient prefers to go to [place]. Labs/imaging reviewed: - WBC 6.2, hemoglobin 12.4, platelets 244, sodium 138, potassium 4.2, creatinine 0.70, glucose 78. - Chest x-ray reviewed Plan: Continue gentle hydration. Continue nebs and azithromycin. CM to work on discharge planning. Continue physical therapy as tolerated. Replace electrolytes as needed. Otherwise continue with current treatment plan. Monitor a.m. labs and imaging. Past Medical Family Social History Allergies: Allergies No Known Allergies Allergy (Verified 03/28/24 16:40) Review of Systems ROS changes noted: see HPI Vital Signs and I&O's Vital Signs: Vital Signs Temperature 97.3 F Temperature 98.4 F Pulse Rate [Left] 70 Pulse Rate [Left] 67 Pulse Rate 76 Respiratory Rate 18 Respiratory Rate 18 Blood Pressure [Left Arm] 138/85 Blood Pressure [Left Arm] 125/60 O2 Sat by Pulse Oximetry 98 O2 Sat by Pulse Oximetry 96 O2 Sat by Pulse Oximetry 98 Intake and Output: Intake & Output 12/14/24 12/15/24 12/16/24 12/17/24 23:59 23:59 23:59 23:59 Intake Total 1504 / 1504 1338 / 1338 1085 / 1085 Output Total 250 / 250 300 / 300 150 / 150 Balance 1254 / 1254 1038 / 1038 935 / 935 Physical Exam Oriented: Normal Eyes: Normal Throat: Normal Respiratory: Generalized and Diminished Cardiovascular: Normal Auscultation: Bowel Sounds: Normal Tenderness: Normal Skin: Decreased Turgur and Wound (sacrum ) Musculoskeletal: Motor Deficit Psychiatric: Normal Mood Description: Calm Affect: Normal Speech Pattern: Clear and Appropriate Laboratory and Diagnostics 12/17/24 05:25 12/17/24 05:25 Labs: 12/16/24 16:34 Urine,Catheterized Urine Culture - Preliminary Laboratory WBC 6.2 X10^3/uL (3.6-10.0) 12/17/24 05:25 RBC 3.96 X10^6/uL (4.7-6.0) L 12/17/24 05:25 Hgb 12.4 g/dL (13.5-18.0) L 12/17/24 05:25 Hct 36.4 % (42.0-54.0) L 12/17/24 05:25 MCV 92.0 fL (80.0-100.0) 12/17/24 05:25 MCH 31.4 pg (27.0-34.0) 12/17/24 05:25 MCHC 34.1 g/dL (33.0-35.0) 12/17/24 05:25 RDW 14.5 % (11.6-16.5) 12/17/24 05:25 Plt Count 244 X10^3/uL (150.0-450.0) 12/17/24 05:25 MPV 7.7 fL (7.4-11.0) 12/17/24 05:25 Neut % (Auto) 67.1 % (42.0-75.0) 12/17/24 05:25 Lymph % (Auto) 21.1 % (21.0-51.0) 12/17/24 05:25 [place] % (Auto) 5.7 % (0.0-13.0) 12/17/24 05:25 Eos % (Auto) 5.2 % (0.9-2.9) H 12/17/24 05:25 Baso % (Auto) 0.9 % (0.2-1.0) 12/17/24 05:25 Neut # (Auto) 4.1 x10^3/uL (2.2-4.8) 12/17/24 05:25 Lymph # (Auto) 1.3 X10^3/uL (1.3-2.9) 12/17/24 05:25 [place] # (Auto) 0.4 x10^3/uL (0.3-0.8) 12/17/24 05:25 Eos # (Auto) 0.3 x10^3/uL (0.0-0.2) H 12/17/24 05:25 Baso # (Auto) 0.1 X10^3/uL (0.0-0.1) 12/17/24 05:25 Absolute Nucleated RBC 0.2 /100WBC 12/17/24 05:25 Sodium 138 mmol/L (136-145) 12/17/24 05:25 Corrected Sodium TNP 12/17/24 05:25 Potassium 4.2 mmol/L (3.5-5.1) 12/17/24 05:25 Chloride 101 mmol/L (98-107) 12/17/24 05:25 Carbon Dioxide 33.5 mmol/L (21-32) H 12/17/24 05:25 BUN 12 mg/dL (7-18) 12/17/24 05:25 Creatinine 0.70 mg/dL (0.70-1.30) 12/17/24 05:25 Est GFR (MDRD) Af Amer > 60 (>60) 12/17/24 05:25 Est GFR (MDRD) Non-Af > 60 (>60) 12/17/24 05:25 Glucose 78 mg/dL (65-99) 12/17/24 05:25 Calcium 8.5 mg/dL (8.5-10.1) 12/17/24 05:25 Corrected Calcium 9.7 mg/dL (8.5-10.1) 12/17/24 05:25 Magnesium 2.0 mg/dL (2.0-2.9) 12/16/24 05:14 Total Bilirubin 0.70 mg/dL (0.2-1.0) 12/17/24 05:25 AST 25 Units/L (15-37) 12/17/24 05:25 ALT 20 Units/L (12-78) 12/17/24 05:25 Alkaline Phosphatase 73 Units/L (46-116) 12/17/24 05:25 Total Protein 6.0 g/dL (6.4-8.2) L 12/17/24 05:25 Albumin 2.5 g/dL (3.4-5.0) L 12/17/24 05:25 Globulin 3.5 g/dL (2.5-4.5) 12/17/24 05:25 Albumin/Globulin Ratio 0.7 Ratio (1.1-2.1) L 12/17/24 05:25 Folate > 20.0 ng/mL (>8.6) 12/13/24 22:14 Specimen Type Catherized urine 12/16/24 16:34 Urine Color Yellow (YELLOW) 12/16/24 16:34 Urine Appearance Clear (CLEAR) 12/16/24 16:34 Urine pH 6.0 (5.0 - 8.0) 12/16/24 16:34 Ur Specific [place] 1.025 (1.000-1.030) 12/16/24 16:34 Urine Protein 2+ (NEGATIVE) 12/16/24 16:34 Urine Glucose (UA) Negative (NEGATIVE) 12/16/24 16:34 Urine Ketones Negative (NEGATIVE) 12/16/24 16:34 Urine Blood 2+ (NEGATIVE) 12/16/24 16:34 Urine Nitrite Negative (NEGATIVE) 12/16/24 16:34 Urine Bilirubin Negative (NEGATIVE) 12/16/24 16:34 Urine Urobilinogen Normal (NORMAL) 12/16/24 16:34 Ur Leukocyte Esterase 1+ (NEGATIVE) 12/16/24 16:34 Urine RBC 5-10 /HPF (0-3) A 12/16/24 16:34 Urine WBC 5-10 /HPF (0-5) A 12/16/24 16:34 Ur Squamous Epith Cells Few /HPF (NEGATIVE) 12/16/24 16:34 Calcium Oxalate Crystal Few /HPF (NEGATIVE) 12/16/24 16:34 Urine Bacteria 1+ /HPF (NEGATIVE) 12/16/24 16:34 Hyaline Casts Few /LPF (NEGATIVE) 12/16/24 16:34 Urine Mucus Moderate /HPF (NEGATIVE) 12/16/24 16:34 Ur Culture Indicated? Yes/culture set up 12/16/24 16:34 Urine Opiates Screen Negative (NEG=<300) 12/14/24 16:03 Urine Methadone Screen Negative (NEG=<300) 12/14/24 16:03 Ur Barbiturates Screen Negative (NEG=<200) 12/14/24 16:03 Ur Phencyclidine Scrn Negative (NEG=<25) 12/14/24 16:03 Ur Amphetamines Screen Negative (NEG=<1000) 12/14/24 16:03 U Benzodiazepines Scrn Negative (NEG=<200) 12/14/24 16:03 Urine Cocaine Screen Negative (NEG=<300) 12/14/24 16:03 U Marijuana (THC) Screen Negative (NEG=<50) 12/14/24 16:03 Plan (1) Adult failure to thrive: Status: Acute (2) Generalized weakness: Status: Acute (3) Cachexia: Status: Acute (4) Dementia: Status: Chronic Qualifiers: Dementia behavioral or psychological symptom: unspecified whether behavioral, psychotic, or mood disturbance or anxiety Dementia severity: unspecified severity Dementia type: unspecified type Qualified Code(s): F03.90 - Unspecified dementia, unspecified severity, without behavioral disturbance, psychotic disturbance, mood disturbance, and anxiety (5) COPD (chronic obstructive pulmonary disease): Status: Chronic Qualifiers: COPD type: COPD with acute exacerbation Qualified Code(s): J44.1 - Chronic obstructive pulmonary disease with (acute) exacerbation (6) HTN (hypertension): Status: Chronic Qualifiers: Hypertension type: primary hypertension Qualified Code(s): I10 - Essential (primary) hypertension (7) Bronchitis: Status: Acute
[2024-12-18 06:23] LABS: EOSINOPHILS # (AUTO) 0.4 x10^3/uL (0.0-0.2); EOSINOPHILS % (AUTO) 7.6 % (0.9-2.9); HEMATOCRIT 37.9 % (42.0-54.0); LYMPHOCYTES # (AUTO) 1.3 X10^3/uL (1.3-2.9); LYMPHOCYTES % (AUTO) 27.1 % (21.0-51.0); MEAN CORPUSCULAR HEMOGLOBIN 31.4 pg (27.0-34.0); MEAN CORPUSCULAR HGB CONC 34.3 g/dL (33.0-35.0); MEAN CORPUSCULAR VOLUME 91.8 fL (80.0-100.0); MEAN PLATELET VOLUME 7.5 fL (7.4-11.0); MONOCYTES # (AUTO) 0.3 x10^3/uL (0.3-0.8); MONOCYTES % (AUTO) 6.2 % (0.0-13.0); NEUTROPHILS # (AUTO) 2.8 x10^3/uL (2.2-4.8); NEUTROPHILS % (AUTO) 58.1 % (42.0-75.0); PLATELET COUNT 260 X10^3/uL (150.0-450.0); RED BLOOD COUNT 4.13 X10^6/uL (4.7-6.0); RED CELL DISTRIBUTION WIDTH 14.6 % (11.6-16.5); WHITE BLOOD COUNT 4.9 X10^3/uL (3.6-10.0)
[2024-12-18 06:46] LABS: ALANINE AMINOTRANSFERASE 19 Units/L (12-78); ALBUMIN 2.5 g/dL (3.4-5.0); ALKALINE PHOSPHATASE 78 Units/L (46-116); ASPARTATE AMINO TRANSFERASE 28 Units/L (15-37); BLOOD UREA NITROGEN 10 mg/dL (7-18); CALCIUM 8.5 mg/dL (8.5-10.1); CARBON DIOXIDE 35.1 mmol/L (21-32); CHLORIDE 102 mmol/L (98-107); COR CA(FOR HYPOALB) 9.7 mg/dL (8.5-10.1); CREATININE 0.66 mg/dL (0.70-1.30); GLUCOSE 72 mg/dL (65-99); POTASSIUM 4.2 mmol/L (3.5-5.1); SODIUM 140 mmol/L (136-145); TOTAL PROTEIN 6.1 g/dL (6.4-8.2); eGFR NON BLACK RACES > 60 (>60)
[2024-12-18 10:11] VITALS: BP 120/71; PULSE 73; RESP 16; TEMP 97.6; O2SAT 96
[2024-12-18] MEDS: DULCOLAX SUPPOSITORY 10 MG RECTAL ONE (10:36)
[2024-12-18] MEDS ORDERED: COLACE CAP 100 MG PO SCH (21:00)
[2024-12-18] MEDS ORDERED: MILK OF MAGNESIA PO SCH (21:00)
--- NOTE | 2024-12-21 16:27 | W.DIS.FURT ---
Summary of Discharge Discharge Summary of Date Date of Exam: 12/18/24 Admission Date Date of Admission: 12/13/24 Admission Diagnosis Patient Problems (Updated 12/15/24 @ 15:45 by Jolie Tran MD) Adult failure to thrive (Acute) R62.7 Dementia (Chronic) F03.90 Cachexia (Acute) R64 Hospital Course: Patient is a 69 year old male admitted for adult failure to thrive, dementia, cachexia. He is doing well this morning. He will be discharged for rehab placement at [facility]. WBC 4.9, hemoglobin 13, platelets 260, sodium 140, potassium 4.2, creatinine 0.66, glucose 72. Patient back to baseline. Vital stable. He was discharged in stable condition. Vital Signs: Vital Signs (72 hours) 12/15/24 12:00 12/15/24 16:00 12/15/24 19:59 Temperature 97.3 F L 97 F L Pulse Rate Pulse Rate [Left] 73 74 Respiratory Rate 19 19 Blood Pressure [Left Arm] Blood Pressure [Right Arm] 103/73 108/63 O2 Sat by Pulse Oximetry 97 95 Oxygen Delivery Method Nasal Cannula Nasal Cannula Nasal Cannula Oxygen Flow Rate 2 2 2 FIO2% 12/15/24 19:59 12/15/24 20:00 12/15/24 19:00 Temperature 97.9 F Pulse Rate 74 Pulse Rate [Left] 64 Respiratory Rate 18 Blood Pressure [Left Arm] 119/79 Blood Pressure [Right Arm] O2 Sat by Pulse Oximetry 97 100 Oxygen Delivery Method Nasal Cannula Nasal Cannula Oxygen Flow Rate 2 2 FIO2% 12/16/24 00:00 12/16/24 04:00 12/16/24 08:19 Temperature 98.1 F 97.6 F Pulse Rate Pulse Rate [Left] 77 66 Respiratory Rate 18 17 Blood Pressure [Left Arm] 109/73 137/63 Blood Pressure [Right Arm] O2 Sat by Pulse Oximetry 98 100 Oxygen Delivery Method Nasal Cannula Nasal Cannula Nasal Cannula Oxygen Flow Rate 2 2 2 FIO2% 28 12/16/24 08:19 12/16/24 10:12 12/16/24 08:00 Temperature 97 F L Pulse Rate 80 Pulse Rate [Left] 69 Respiratory Rate 19 Blood Pressure [Left Arm] 103/72 Blood Pressure [Right Arm] O2 Sat by Pulse Oximetry 96 97 Oxygen Delivery Method Nasal Cannula Nasal Cannula Oxygen Flow Rate 2 2 FIO2% 12/16/24 12:00 12/16/24 16:00 12/16/24 20:00 Temperature 97.5 F L 97.8 F 98.0 F Pulse Rate Pulse Rate [Left] 66 78 84 Respiratory Rate 18 19 18 Blood Pressure [Left Arm] 106/66 105/71 108/71 Blood Pressure [Right Arm] O2 Sat by Pulse Oximetry 91 L 93 L 94 L Oxygen Delivery Method Nasal Cannula Nasal Cannula Oxygen Flow Rate 2 2 2 FIO2% 12/16/24 19:00 12/17/24 00:00 12/17/24 04:00 Temperature 97.9 F 98.4 F Pulse Rate Pulse Rate [Left] 71 67 Respiratory Rate 17 18 Blood Pressure [Left Arm] 139/62 125/60 Blood Pressure [Right Arm] O2 Sat by Pulse Oximetry 96 98 Oxygen Delivery Method Nasal Cannula Nasal Cannula Nasal Cannula Oxygen Flow Rate 2 2 2 FIO2% 12/17/24 08:00 12/17/24 07:00 12/17/24 09:00 Temperature 97.3 F L Pulse Rate Pulse Rate [Left] 70 Respiratory Rate 18 Blood Pressure [Left Arm] 138/85 Blood Pressure [Right Arm] O2 Sat by Pulse Oximetry 96 Oxygen Delivery Method Nasal Cannula Nasal Cannula Room Air Oxygen Flow Rate 2 2 FIO2% 21 12/17/24 09:00 12/17/24 12:00 12/17/24 16:00 Temperature 98 F 97.8 F Pulse Rate 76 Pulse Rate [Left] 76 76 Respiratory Rate 20 21 Blood Pressure [Left Arm] 108/72 111/73 Blood Pressure [Right Arm] O2 Sat by Pulse Oximetry 98 96 94 L Oxygen Delivery Method Nasal Cannula Nasal Cannula Oxygen Flow Rate 2 2 FIO2% 12/17/24 19:00 12/17/24 20:00 12/18/24 00:00 Temperature 97.6 F 97.5 F L Pulse Rate Pulse Rate [Left] 71 70 Respiratory Rate 18 20 Blood Pressure [Left Arm] 130/81 131/87 Blood Pressure [Right Arm] O2 Sat by Pulse Oximetry 97 95 Oxygen Delivery Method Nasal Cannula Nasal Cannula Nasal Cannula Oxygen Flow Rate 2 2 2 FIO2% 12/18/24 04:00 Temperature 97.8 F Pulse Rate Pulse Rate [Left] 66 Respiratory Rate 18 Blood Pressure [Left Arm] 123/79 Blood Pressure [Right Arm] O2 Sat by Pulse Oximetry 97 Oxygen Delivery Method Nasal Cannula Oxygen Flow Rate 2 FIO2% Labs: Laboratory Last Values WBC 4.9 X10^3/uL (3.6-10.0) 12/18/24 05:23 RBC 4.13 X10^6/uL (4.7-6.0) L 12/18/24 05:23 Hgb 13.0 g/dL (13.5-18.0) L 12/18/24 05:23 Hct 37.9 % (42.0-54.0) L 12/18/24 05:23 MCV 91.8 fL (80.0-100.0) 12/18/24 05:23 MCH 31.4 pg (27.0-34.0) 12/18/24 05: MCHC 34.3 g/dL (33.0-35.0) 12/18/24 05:23 RDW 14.6 % (11.6-16.5) 12/18/24 05:23 Plt Count 260 X10^3/uL (150.0-450.0) 12/18/24 05:23 MPV 7.5 fL (7.4-11.0) 12/18/24 05:23 Neut % (Auto) 58.1 % (42.0-75.0) 12/18/24 05:23 Lymph % (Auto) 27.1 % (21.0-51.0) 12/18/24 05:23 [place] % (Auto) 6.2 % (0.0-13.0) 12/18/24 05:23 Eos % (Auto) 7.6 % (0.9-2.9) H 12/18/24 05:23 Baso % (Auto) 1.0 % (0.2-1.0) 12/18/24 05:23 Neut # (Auto) 2.8 x10^3/uL (2.2-4.8) 12/18/24 05:23 Lymph # (Auto) 1.3 X10^3/uL (1.3-2.9) 12/18/24 05:23 [place] # (Auto) 0.3 x10^3/uL (0.3-0.8) 12/18/24 05:23 Eos # (Auto) 0.4 x10^3/uL (0.0-0.2) H 12/18/24 05:23 Baso # (Auto) 0.0 X10^3/uL (0.0-0.1) 12/18/24 05:23 Absolute Nucleated RBC 0.0 /100WBC 12/18/24 05:23 Sodium 140 mmol/L (136-145) 12/18/24 05:23 Corrected Sodium TNP 12/18/24 05:23 Potassium 4.2 mmol/L (3.5-5.1) 12/18/24 05:23 Chloride 102 mmol/L (98-107) 12/18/24 05:23 Carbon Dioxide 35.1 mmol/L (21-32) H 12/18/24 05:23 BUN 10 mg/dL (7-18) 12/18/24 05:23 Creatinine 0.66 mg/dL (0.70-1.30) L 12/18/24 05:23 Est GFR (MDRD) Af Amer > 60 (>60) 12/18/24 05:23 Est GFR (MDRD) Non-Af > 60 (>60) 12/18/24 05:23 Glucose 72 mg/dL (65-99) 12/18/24 05:23 Calcium 8.5 mg/dL (8.5-10.1) 12/18/24 05:23 Corrected Calcium 9.7 mg/dL (8.5-10.1) 12/18/24 05:23 Magnesium 2.0 mg/dL (2.0-2.9) 12/16/24 05:14 Total Bilirubin 0.70 mg/dL (0.2-1.0) 12/18/24 05:23 AST 28 Units/L (15-37) 12/18/24 05:23 ALT 19 Units/L (12-78) 12/18/24 05:23 Alkaline Phosphatase 78 Units/L (46-116) 12/18/24 05:23 Total Protein 6.1 g/dL (6.4-8.2) L 12/18/24 05:23 Albumin 2.5 g/dL (3.4-5.0) L 12/18/24 05:23 Globulin 3.6 g/dL (2.5-4.5) 12/18/24 05:23 Albumin/Globulin Ratio 0.7 Ratio (1.1-2.1) L 12/18/24 05:23 Folate > 20.0 ng/mL (>8.6) 12/13/24 22:14 Specimen Type Catherized urine 12/16/24 16:34 Urine Color Yellow (YELLOW) 12/16/24 16:34 Urine Appearance Clear (CLEAR) 12/16/24 16:34 Urine pH 6.0 (5.0 - 8.0) 12/16/24 16:34 Ur Specific [place] 1.025 (1.000-1.030) 12/16/24 16:34 Urine Protein 2+ (NEGATIVE) 12/16/24 16:34 Urine Glucose (UA) Negative (NEGATIVE) 12/16/24 16:34 Urine Ketones Negative (NEGATIVE) 12/16/24 16:34 Urine Blood 2+ (NEGATIVE) 12/16/24 16:34 Urine Nitrite Negative (NEGATIVE) 12/16/24 16:34 Urine Bilirubin Negative (NEGATIVE) 12/16/24 16:34 Urine Urobilinogen Normal (NORMAL) 12/16/24 16:34 Ur Leukocyte Esterase 1+ (NEGATIVE) 12/16/24 16:34 Urine RBC 5-10 /HPF (0-3) A 12/16/24 16:34 Urine WBC 5-10 /HPF (0-5) A 12/16/24 16:34 Ur Squamous Epith Cells Few /HPF (NEGATIVE) 12/16/24 16:34 Calcium Oxalate Crystal Few /HPF (NEGATIVE) 12/16/24 16:34 Urine Bacteria 1+ /HPF (NEGATIVE) 12/16/24 16:34 Hyaline Casts Few /LPF (NEGATIVE) 12/16/24 16:34 Urine Mucus Moderate /HPF (NEGATIVE) 12/16/24 16:34 Ur Culture Indicated? Yes/culture set up 12/16/24 16:34 Urine Opiates Screen Negative (NEG=<300) 12/14/24 16:03 Urine Methadone Screen Negative (NEG=<300) 12/14/24 16:03 Ur Barbiturates Screen Negative (NEG=<200) 12/14/24 16:03 Ur Phencyclidine Scrn Negative (NEG=<25) 12/14/24 16:03 Ur Amphetamines Screen Negative (NEG=<1000) 12/14/24 16:03 U Benzodiazepines Scrn Negative (NEG=<200) 12/14/24 16:03 Urine Cocaine Screen Negative (NEG=<300) 12/14/24 16:03 U Marijuana (THC) Screen Negative (NEG=<50) 12/14/24 16:03 Reason For Visit: FAILURE TO THRIVE, CACHEXIA, DEMENTIA Discharge Date Discharge Date: 12/18/24 Discharge Diagnosis All Active Problems (Updated 12/15/24 @ 15:45 by Jolie Tran MD) Bronchitis (Acute) Generalized weakness (Acute) HTN (hypertension) (Chronic) Adult failure to thrive (Acute) Dementia (Chronic) Cachexia (Acute) PAD (peripheral artery disease) (Acute) Cellulitis (Acute) Open leg wound (Acute) Chest pain (Acute) COPD (chronic obstructive pulmonary disease) (Chronic) Malignant hypertension (Acute) Plan of Treatment: Continue with present treatment and follow up plan. Pt is to keep follow up appointment as instructed and take medications as ordered. Discharge Medications Discharge Medications: No Known Allergies Allergy (Verified 03/28/24 16:40) CONTINUE taking the following medications folic acid 1 mg tablet 1 mg PO QDAY 12/13/24 [History] New Prescriptions azithromycin 250 mg tablet 250 mg PO QDAY 5 days #5 tabs 12/15/24 [Rx] fluticasone fur. 100 mcg-umeclid 62.5 mcg-vilant 25 mcg inhalat.powder (Trelegy Ellipta) 1 inh inhalation Q24H 30 days #28 ea 12/15/24 [Rx] Discharge Plan Discharge Plan Hospital Course: Patient is a 69 year old male admitted for adult failure to thrive, dementia, cachexia. He is doing well this morning. He will be discharged for rehab placement at [facility]. WBC 4.9, hemoglobin 13, platelets 260, sodium 140, potassium 4.2, creatinine 0.66, glucose 72. Patient back to baseline. Vital stable. He was discharged in stable condition. Patient Disposition: 01 HOME, SELF-CARE Condition: Stable Health Concerns: Post Hospitalization: new medications and changes needed to prevent readmission or further decline. Pt educated and given instructions on all concerns. Care Plan Goals: Problem: Activity Intolerance Goal: Increased tolerance to activity Instructions: Follow provided instructions. Follow up with primary physician as directed. Contact primary care physician or report to the closest Emergency Room if condition worsens. Plan of Treatment: Continue with present treatment and follow up plan. Pt is to keep follow up appointment as instructed and take medications as ordered. Prescription drug monitoring program results: PDMP reviewed and no concerns identified Prescriptions: New Trelegy Ellipta 100-62.5-25 mcg blister with device 1 inh inhalation Q24H 30 Days Qty: 28 0RF Continued albuterol sulfate 90 mcg/actuation HFA aerosol inhaler 2 puff inhalation Q4-6H PRNQty: 8.5 0RF folic acid 1 mg tablet 1 mg PO QDAY Discontinued losartan-hydrochlorothiazide 50-12.5 mg tablet 1 tab PO QDAY Qty: 15 0RF furosemide 40 mg tablet 40 mg PO BID Orders to Discharge Patient Discharge Orders: Discharge (Routine); Ordered 12/18/24 Ordered By: David Perez Follow ups/Referrals Follow ups/Referrals: Santhosh Lopes [STAFF PHYSICIAN] - 12/21/24 1:00 pm Instructions Instructions: Weakness: What to Know, [id number], Not Eating Enough Protein, Fat, and Calories (Protein-Energy Malnutrition): What to Know, Malnutrition, Adult, [id number] Activity Restrictions/Additional Instructions: Monitor blood pressure daily. Stop lasix and BP medication until seen by primary care. Stand Alone Forms: Find Help Web Site, Post Hospital Follow Up Care
== END 2024-12-18 13:30 | disposition home or self-care (01) ==
LOC: ER 21:56 → MED/SURG 12-14 00:44 → INTOOBSV 12-14 00:44 → MED/SURG 12-14 01:28
PROVIDERS: ADMIT Internal Medicine; ATTEND Internal Medicine
DX: Z79.899 Other long term (current) drug therapy; E86.0 Dehydration; E87.0 Hyperosmolality and hypernatremia; Z59.19 Other inadequate housing; R73.09 Other abnormal glucose; I10 Essential (primary) hypertension; R94.31 Abnormal electrocardiogram [ECG] [EKG]; R26.89 Other abnormalities of gait and mobility; L89.151 Pressure ulcer of sacral region, stage 1; R41.82 Altered mental status, unspecified; Z68.1 Body mass index [BMI] 19.9 or less, adult; F03.90 Unspecified dementia, unspecified severity, without behavioral disturbance, psychotic disturbance, mood disturbance, and anxiety; E78.5 Hyperlipidemia, unspecified; J44.1 Chronic obstructive pulmonary disease with (acute) exacerbation; R62.7 Adult failure to thrive; R53.1 Weakness; L89.891 Pressure ulcer of other site, stage 1; R64 Cachexia